=== PATIENT | female | born 1960 | race Caucasian/White ===

== ENCOUNTER → 2019-06-01 10:33 | Outpatient (BNVA) | payer SELFPAY | PROVIDERS: PCP Nurse Practitioner; Visit Provider Nurse Practitioner | DX: M54.30 Sciatica, unspecified side (principal); M54.9 Dorsalgia, unspecified; R05 Cough; I10 Essential (primary) hypertension | CPT/HCPCS: 71046; 72040; 72072; 72100; 80053; 80061; 81000; 85025 ==

== ENCOUNTER → 2019-09-01 14:05 | Outpatient (BNVA) | payer SELFPAY | PROVIDERS: PCP Nurse Practitioner; Visit Provider Nurse Practitioner Family | DX: F41.8 Other specified anxiety disorders (principal); I10 Essential (primary) hypertension; L50.9 Urticaria, unspecified; R79.89 Other specified abnormal findings of blood chemistry | CPT/HCPCS: 80053; 85025; 86705; 86706; 86709; 86803; 87340 ==

== ENCOUNTER → 2019-09-07 09:55 | Outpatient (BNVA) | payer SELFPAY | PROVIDERS: PCP Nurse Practitioner; Visit Provider Nurse Practitioner Family | DX: R76.8 Other specified abnormal immunological findings in serum (principal) | CPT/HCPCS: 87522; 87902 ==

== ENCOUNTER 2019-09-22 06:55 | Outpatient (CLI) | payer SELFPAY ==
--- NOTE | 2019-09-22 07:15 | US_ITS ---
WS: [id number] ULTRASOUND ABDOMEN LIMITED CLINICAL INFORMATION: elevated LFTs, hepatis C positive on panel COMPARISON: None. FINDINGS: Liver Size: Normal. Craniocaudal length: 14.5 cm. Echogenicity: Normal. Surface nodularity: None. Mass (size and location): Several echogenic lesions in the liver likely represent cavernous hemangiom as largest in the right hepatic lobe measuring 1.8 x 2.2 x 1.7 CM. This could be further evaluated wi CT abdomen pelvis with liver protocol. Bile ducts Intrahepatic ducts: Normal. Common bile duct diameter: 0.4 cm. Gallbladder Cholecystectomy Pancreas Normal as visualized. Right kidney: Normal. Hydronephrosis: None. Size: 10.0 cm x 4.1 cm x 4.7 cm. Abdominal aorta and IVC Visualized portions are normal. Ascites: None. US/US liver [id number] IMPRESSION: 1. Several echogenic lesion right hepatic lobe most likely represent benign ca vernous hemangiomas. Largest measures 1.8 x 2.2 x 1.7 CM. Recommend further gonzalez luation with CT abdomen pelvis with triphasic liver protocol for further assess ment. 2. Cholecystectomy. 3. Exam otherwise unremarkable
== END 2019-09-22 06:56 | disposition home or self-care (01) ==
PROVIDERS: PCP Nurse Practitioner; Visit Provider Nurse Practitioner Family
DX: R76.8 Other specified abnormal immunological findings in serum (principal); R94.5 Abnormal results of liver function studies; K76.9 Liver disease, unspecified
CPT/HCPCS: 76705

== ENCOUNTER 2019-09-28 12:53 | Outpatient (CLI) | payer SELFPAY ==
--- NOTE | 2019-09-28 13:00 | CT_ITS ---
WS: [id number] CT ABDOMEN NON-CONTRAST PLUS CONTRAST TECHNIQUE: Noncontrast CT of the abdomen and contrast-enhanced CT of the abdomen with coronal and sag ittal reformatted images. CLINICAL INFORMATION: liver lesion COMPARISON: Ultrasound liver September 22, 2019 DLP: [id number] scans at [facility] use at least one of these dose optimization techniques: automat ed exposure control; mA and/or kV adjustment per patient size (includes targeted exams where dose is matched to clinical indication); or iterative reconstruction. FINDINGS: Mild diffuse fatty infiltration liver. Portal vein and splenic vein are normal. Cholecystectomy clips . Peripheral enhancing lesion right hepatic lobe measuring 2.6 x 1.6 cm with progressive globular enh ancement on the delayed imaging most consistent with cavernous hemangioma. Smaller similar-appearing lesion in the left hepatic lobe measuring 10 mm. Normal GE junction. Normal spleen. Adrenal glands are normal. Normal pancreas. Aortic calcification. Dense aortic calcification distal a bdominal aorta with mild stenosis. Mild/moderate stenosis involving the right common iliac origin. Lung bases are well aerated. CT/CT abdomen wo/w con [id number] IMPRESSION: 1. Right hepatic low-attenuation lesion with peripheral progressive enhancemen t most consistent with cavernous hemangioma measuring 2.6 x 1.6 cm correspondin g to the ultrasound findings. 2. Additional smaller similar appearing lesion left hepatic lobe measuring 10 mm also most consistent with cavernous hemangioma. These lesions to be followed up in 6-12 months with contrast-enhanced CT abdomen pelvis with liver protocol to ensure stability 3. Diffuse fatty infiltration of the liver. 4. No other significant findings. 5. Moderate calcified atheromatous disease abdominal aorta with mild stenosis. Moderate stenosis involving the right common iliac artery origin.
[2019-09-28] MEDS: iohexol 300 mg/mL 100 mL Btl IV (13:28)
== END 2019-09-28 12:54 | disposition home or self-care (01) ==
LOC: RADWPI 12:56
PROVIDERS: Family Provider Nurse Practitioner; PCP Nurse Practitioner; Visit Provider Nurse Practitioner Family
DX: K76.9 Liver disease, unspecified (principal); K76.0 Fatty (change of) liver, not elsewhere classified; I70.0 Atherosclerosis of aorta; I35.0 Nonrheumatic aortic (valve) stenosis; I70.8 Atherosclerosis of other arteries
CPT/HCPCS: 74170; Q9967

== ENCOUNTER 2019-11-04 08:33 | Day surgery (SDC) | payer SELFPAY ==
[2019-11-02 15:22] VITALS: BMI 25.0
[2019-11-04 08:50] VITALS: BP 119/85; PULSE 107; RESP 18; TEMP 36.6; O2SAT 98
[2019-11-04] MEDS: sodium chloride 0.9% 1,000 ML 30 ML IV (09:04)
--- NOTE | 2019-11-04 09:32 | ANES.PREANE2 ---
Pre-Anesthetic Assessment Pre-Anesthetic Assessment: Height/Weight: Height 1.52 m Weight 58.06 kg Temp Pulse Resp BP Pulse Ox 97.9 F 107 H 18 119/85 98 11/04/19 08:50 11/04/19 08:50 11/04/19 08:50 11/04/19 08:50 11/04/19 08:50 Preop Diagnosis: polys Proposed Procedure: Operation Date: 11/04/19 09:45 Proposed Procedures p Colonoscopy 25642 Z86.010(Not Applicable) - Davonte Hernandez MD Was Beta Sergo taken within 24 hours: N/A Last intake: Intake Last Liquid Date 11/03/19 Last Liquid Time 22:00 Last Solid Date 11/02/19 Last Solid Time 20:00 Social: Social History: Alcohol and Tobacco Exam: Pre-Anes Outpt Exam: alert, oriented x 3, clear to auscultation bilaterally and regular rate & rhythm Airway: Submandibular: WNL Cervical ROM: WNL MP: 1 Pulmonary: Pulmonary: COPD and Cough CV/HEM: CV/HEM: HTN : : None reported Hepatic: Hepatic: None reported GI: GI: None reported Metabolic: Metabolic: DM Musc/skel: Musc/skel: None reported Neuropsych: Neuropsych: None reported Anesthetic Plan: ASA status: 2 Anesthesia: MAC Meds/Allergies Current Medications: Current Medications Generic Name Dose Route Start Last Admin Trade Name Freq PRN Reason Stop Dose Admin Sodium Chloride 1,000 mls @ 30 ml s/hr 11/04/19 08:45 11/04/19 09:04 Sodium Chloride 0.9% IV 11/05/19 08:44 30 mls/hr .Q24H VLADISLAV Administration PFSH Anesthesia PFSH: Medical History (Updated 10/19/19 @ 09:51 by Davonte Hernandez MD) Anxiety with depression Environmental and seasonal allergies Essential (primary) hypertension Fibromyalgia GERD (gastroesophageal reflux disease) Hepatitis C Sciatic pain Surgical History H/O: hysterectomy History of appendectomy History of section History of cholecystectomy Family History Mother Cancer Heart disease Other Diabetes Denies family history of Chronic kidney disease (CKD) Bleeding disorder Social History Smoking and tobacco status: current every day smoker Second hand smoke exposure: Yes Smoking risk assessment/counseling performed?: Yes Alcohol intake: unknown Desire information about alcohol rehabilitation?: No Counseling given: No Desire information about substance/drug rehabilitation?: No Counseling given: No Caregiver/support person: No Lives independently: Yes Marital status: Legally Current occupational status: employed History of recent travel: No Current gender identity: Female Data Anesthesia Cardiac Studies: No Data to Display
--- NOTE | 2019-11-04 10:43 | W.PM.OPSUD ---
Surgery/Procedure H&P Update DATE OF PROCEDURE: November 04, 2019 DATE H&P PERFORMED: 10/19/19 PREOP DIAGNOSIS: polys PLANNED PROCEDURE: Operation Date: 11/04/19 09:45 Proposed Procedures p Colonoscopy 96453 Z86.010(Not Applicable) - Davonte Hernandez MD
[2019-11-04 10:56] VITALS: BP 97/67; PULSE 83; RESP 16; TEMP 37.1; O2SAT 99
--- NOTE | 2019-11-04 10:58 | ANE.PACU2 ---
Inpatient post-anesthesia follow up: Airway intact: Yes Vital signs: Temperature 98.7 F Pulse Rate 83 Respiratory Rate 16 Blood Pressure 97/67 Pulse Oximetry 99 Oxygen Delivery Me thod Nasal Cannula Oxygen Flow Rate 5 Fraction of Inspir ed Oxygen Hydration adequate: Yes Nausea and vomiting: No Pain level: 1 Mental status: Baseline
[2019-11-04 11:17] VITALS: BP 127/86; PULSE 87; RESP 18; O2SAT 97
== END 2019-11-04 11:24 | disposition home or self-care (01) ==
PROVIDERS: PCP Nurse Practitioner; Visit Provider Internal Medicine
PROC: 0DJD8ZZ Inspection of Lower Intestinal Tract, Via Natural or Artificial Opening Endoscopic (ICD-10-PCS; CPT 45378; principal; 2019-11-04 09:45)
DX: Z12.11 Encounter for screening for malignant neoplasm of colon (principal); J44.9 Chronic obstructive pulmonary disease, unspecified; I10 Essential (primary) hypertension; E11.9 Type 2 diabetes mellitus without complications; B18.2 Chronic viral hepatitis C; F17.200 Nicotine dependence, unspecified, uncomplicated; Z86.010 Personal history of colon polyps; Z83.71 Family history of colonic polyps
CPT/HCPCS: 12345; 45378; J2704; J7030

== ENCOUNTER → 2020-01-09 16:02 | Outpatient (BNVA) | payer SELFPAY | PROVIDERS: PCP Nurse Practitioner; Visit Provider Internal Medicine | DX: B18.2 Chronic viral hepatitis C (principal) | CPT/HCPCS: 87522 ==

== ENCOUNTER 2020-03-15 10:59 | Outpatient (CLI) | payer SELFPAY ==
--- NOTE | 2020-03-15 11:30 | MM_ITS ---
WS: [id number] Bilateral screening digital mammogram, 03/15/2020 Clinical Data: Z12.31 - Encounter for screening mammogram for malignant neoplasm of breast Comparison: 08/12/2010, 07/13/2001. Findings: The breast parenchymal pattern shows fibroglandular tissue. No spiculated masses or clustered calcifi cations are seen. There are no secondary signs of carcinoma. MM/[place] [id number] Impression: 1. Negative bilateral mammogram unchanged. 2. Recommend annual screening mammograms. BIRADS: 1-Negative FOLLOW UP: 1 Year Follow-up The CAD production checker was used.
== END 2020-03-15 11:00 | disposition home or self-care (01) ==
LOC: RADSHAW 11:02
PROVIDERS: PCP Nurse Practitioner; Visit Provider Nurse Practitioner Family
DX: Z12.31 Encounter for screening mammogram for malignant neoplasm of breast (principal)
CPT/HCPCS: 77067

== ENCOUNTER → 2020-05-28 10:15 | Outpatient (BNVA) | payer SELFPAY | PROVIDERS: PCP Nurse Practitioner; Visit Provider Nurse Practitioner | DX: I10 Essential (primary) hypertension (principal); E55.9 Vitamin D deficiency, unspecified; B18.2 Chronic viral hepatitis C; M79.7 Fibromyalgia; J30.89 Other allergic rhinitis | CPT/HCPCS: 80053; 80061; 82306; 82607; 84443; 87522; 87635 ==

== ENCOUNTER 2020-06-01 08:17 | Day surgery (SDC) | payer SELFPAY ==
[2020-05-30 11:27] VITALS: BMI 25.0
[2020-06-01 08:36] VITALS: BP 140/98; PULSE 94; RESP 16; TEMP 37.1; O2SAT 97
[2020-06-01 08:51] VITALS: BP 140/98; PULSE 94; RESP 16; TEMP 37.1; O2SAT 97
[2020-06-01] MEDS: sodium chloride 0.9% 1,000 ML 30 ML IV (08:56)
--- NOTE | 2020-06-01 09:12 | W.PM.OPSUD ---
Surgery/Procedure H&P Update DATE OF PROCEDURE: June 01, 2020 DATE H&P PERFORMED: 05/28/20 PREOP DIAGNOSIS: egd PLANNED PROCEDURE: Operation Date: 06/01/20 09:50 Proposed Procedures p EGD Dilation Mini/ Gilles 99654 r13.10(Not Applicable) - Davonte Hernandez MD
--- NOTE | 2020-06-01 10:15 | ANES.PREANE2 ---
Pre-Anesthetic Assessment Pre-Anesthetic Assessment: Height/Weight: Height 1.52 m Weight 58.06 kg Temp Pulse Resp BP Pulse Ox 97.7 F 76 16 95/66 94 06/01/20 10:29 06/01/20 10:29 06/01/20 10:29 06/01/20 10:29 06/01/20 10:29 Preop Diagnosis: egd Proposed Procedure: Operation Date: 06/01/20 09:50 Proposed Procedures p EGD Dilation W/ Bougie 15777 r13.10(Not Applicable) - Davonte Hernandez MD Was Beta Sergo taken within 24 hours: N/A Was Clonidine taken within 24 hours: N/A Last intake: Intake Last Liquid Date 05/31/20 Last Solid Date 05/31/20 Social: Social History: Tobacco Exam: Pre-Anes Outpt Exam: alert, oriented x 3, clear to auscultation bilaterally and regular rate & rhythm Airway: Submandibular: WNL Cervical ROM: WNL MP: 2 Dentition: False History/ROS: No significant history except as noted Pulmonary: Pulmonary: COPD CV/HEM: CV/HEM: HTN : : None reported Hepatic: Hepatic: Hepatitis (treated) GI: GI: GERD Comments: dysphagia Metabolic: Metabolic: None reported Musc/skel: Musc/skel: Fibromyalgia Neuropsych: Neuropsych: Anxiety Anesthetic Plan: ASA status: 2 Meds/Allergies Current Medications: Current Medications Generic Name Dose Route Start Last Admin Trade Name Freq PRN Reason Stop Dose Admin Sodium Chloride 1,000 mls @ 30 ml s/hr 06/01/20 08:30 06/01/20 08:56 Sodium Chloride 0.9% IV 30 mls/hr .Q24H VLADISLAV Administration PFSH Anesthesia PFSH: Medical History Anxiety with depression Environmental and seasonal allergies Essential (primary) hypertension Fibromyalgia GERD (gastroesophageal reflux disease) Hepatitis C Sciatic pain Surgical History H/O: hysterectomy History of appendectomy History of section History of cholecystectomy Family History Mother Cancer Heart disease Other Diabetes Denies family history of Chronic kidney disease (CKD) Bleeding disorder Social History Smoking and tobacco status: current every day smoker Second hand smoke exposure: Yes Smoking risk assessment/counseling performed?: Yes Alcohol intake: unknown Desire information about alcohol rehabilitation?: No Counseling given: No Desire information about substance/drug rehabilitation?: No Counseling given: No Caregiver/support person: No Lives independently: Yes Marital status: Legally Current occupational status: employed History of recent travel: No Current gender identity: Female Data Anesthesia Cardiac Studies: No Data to Display
[2020-06-01 10:29] VITALS: BP 95/66; PULSE 76; RESP 16; TEMP 36.5; O2SAT 94
[2020-06-01 10:48] VITALS: BP 101/73; PULSE 76; RESP 16; O2SAT 100
--- NOTE | 2020-06-01 13:37 | ANE.PACU2 ---
Inpatient post-anesthesia follow up: Airway intact: Yes Vital signs: Temperature 97.7 F Pulse Rate 76 Respiratory Rate 16 Blood Pressure 101/73 Pulse Oximetry 100 Oxygen Delivery Me thod Room Air Oxygen Flow Rate Fraction of Inspir ed Oxygen Hydration adequate: Yes Nausea and vomiting: No Pain level: 1 Mental status: Baseline
[2020-06-02 12:02] LABS: H. Pylori / CLO Test Positive
== END 2020-06-01 11:01 | disposition home or self-care (01) ==
PROVIDERS: PCP Nurse Practitioner; Visit Provider Internal Medicine
DX: K29.71 Gastritis, unspecified, with bleeding (principal); R13.10 Dysphagia, unspecified; K21.9 Gastro-esophageal reflux disease without esophagitis; F17.210 Nicotine dependence, cigarettes, uncomplicated; I10 Essential (primary) hypertension; B19.20 Unspecified viral hepatitis C without hepatic coma; J44.9 Chronic obstructive pulmonary disease, unspecified; M79.7 Fibromyalgia
CPT/HCPCS: 43239; 87077; 96360; 96361; J2704; J7030

== ENCOUNTER → 2021-01-21 16:16 | Outpatient (BNVA) | payer SELFPAY | PROVIDERS: PCP Nurse Practitioner; Visit Provider Nurse Practitioner Family | DX: I10 Essential (primary) hypertension (principal); J98.01 Acute bronchospasm; K21.9 Gastro-esophageal reflux disease without esophagitis | CPT/HCPCS: 80053; 80061; 84443; 85025 ==

== ENCOUNTER → 2021-11-12 09:16 | Outpatient (BNVA) | payer SELFPAY | PROVIDERS: PCP Nurse Practitioner; Visit Provider Nurse Practitioner Family | DX: I10 Essential (primary) hypertension (principal); J30.89 Other allergic rhinitis; K21.9 Gastro-esophageal reflux disease without esophagitis; J98.01 Acute bronchospasm; E78.5 Hyperlipidemia, unspecified; R22.1 Localized swelling, mass and lump, neck; R13.10 Dysphagia, unspecified | CPT/HCPCS: 80053; 80061; 84443; 85025 ==

== ENCOUNTER 2021-11-29 06:07 | Outpatient (CLI) | payer SELFPAY ==
--- NOTE | 2021-11-29 06:30 | US_ITS ---
WS: [id number] THYROID ULTRASOUND HISTORY: R22.1 - Localized swelling, mass and lump, neck COMPARISON: None available. Right lobe: 1.4 cm x 1.3 cm x 3.7 cm (w x ap x l). Volume: 3.5 cm3. Normal size thyroid. Very slight hypoechoic nodule measures 0.8 x 0.5 x 1.0 cm in the inferior pole. No echogenic foci. Ovoid nodule with no increased vascularity. Left lobe: 1.6 cm x 1.3 cm x 3.8 cm (w x ap x l). Volume: 4.1 cm3. Complex cystic nodule in the mid LEFT thyroid measures 1.4 x 1.5 x 2.0 cm. There is mild increased va scularity in the soft tissue component. Due to the vascularity in the solid component fine-needle asp iration should be attempted. No echogenic foci. Isthmus: 0.2 cm. US/US thyroid [id number] IMPRESSION: 1. Cystic nodule in the mid LEFT thyroid contains a mural nodule. This mural n odule should be targeted for FNA to exclude malignancy. 2. No adenopathy.
== END 2021-11-29 06:08 | disposition home or self-care (01) ==
PROVIDERS: PCP Nurse Practitioner; Visit Provider Nurse Practitioner Family
DX: R22.1 Localized swelling, mass and lump, neck (principal); E04.1 Nontoxic single thyroid nodule
CPT/HCPCS: 76536

== ENCOUNTER → 2021-12-12 09:14 | Outpatient (BNVA) | payer MEDICAID, SELFPAY | PROVIDERS: PCP Nurse Practitioner; Visit Provider Nurse Practitioner | DX: M17.11 Unilateral primary osteoarthritis, right knee (principal); M25.561 Pain in right knee | CPT/HCPCS: 73562 ==

== ENCOUNTER 2022-02-21 11:54 | Outpatient (CLI) | payer MEDICAID, SELFPAY ==
--- NOTE | 2022-02-21 13:00 | US_ITS ---
WS: [id number] ULTRASOUND THYROID FNA CLINICAL INFORMATION: thyroid nodule TECHNIQUE: Ultrasound-guided FNA FINDINGS: Prior ultrasound was reviewed November 29, 2021. The procedure including risks, benefits, and complications were discussed with the patient who agreed to proceed. Timeout was performed. Using sterile technique patient was prepped and draped in usual sterile fashion. After 1% lidocaine, using ultrasound guidance, a 25-gauge needle was advanced into the LEFT thyroid nodule. 5 passes were made with active aspiration. Pathology was present for slide preparation. No immediate complications. Patient remained in the ultrasound suite 10 minutes postprocedure with intermittent ultrasound to ens ure no hematoma. No hematoma 10 minutes postprocedure. US/US biopsy/FNA thyroid [id number] IMPRESSION: Uncomplicated ultrasound-guided thyroid FNA complex LEFT thyroid nodule
== END 2022-02-21 11:55 | disposition home or self-care (01) ==
LOC: RAD 11:54
PROVIDERS: PCP Nurse Practitioner; Visit Provider Otolaryngology
DX: E04.1 Nontoxic single thyroid nodule (principal)
CPT/HCPCS: 10005; 88108

== ENCOUNTER → 2022-03-27 08:58 | Outpatient (BNVA) | payer MEDICAID, SELFPAY | PROVIDERS: PCP Nurse Practitioner; Visit Provider Nurse Practitioner Family | DX: I10 Essential (primary) hypertension (principal); E04.1 Nontoxic single thyroid nodule | CPT/HCPCS: 80053; 80061; 84439; 84443; 84481; 85025; 86376 ==

== ENCOUNTER 2022-05-22 10:40 | Outpatient (CLI) | payer MEDICAID, SELFPAY ==
--- NOTE | 2022-05-22 11:23 | MM_ITS ---
WS: [id number] BILATERAL SCREENING DIGITAL TOMOSYNTHESIS MAMMOGRAM WITH CAD HISTORY: Screening exam. COMPARISON: 03/15/2020, 08/12/2010 Bilateral CC and MLO views with tomosynthesis and synthetic mammography submitted. Computer aided det ection analyzed. Breast composition: There are scattered areas of fibroglandular density. No suspicious masses, microc alcifications or architectural distortion. Similar appearance as compared to 2020 mammogram and also 2010. Benign calcifications in each breast. MM/[place] [id number] IMPRESSION: BI-RADS: 2-Benign FOLLOW UP: 1 Year Follow-up
== END 2022-05-22 10:41 | disposition home or self-care (01) ==
LOC: RAD 10:44
PROVIDERS: PCP Nurse Practitioner; Visit Provider Nurse Practitioner
DX: Z12.31 Encounter for screening mammogram for malignant neoplasm of breast (principal)
CPT/HCPCS: 77063; 77067

== ENCOUNTER → 2022-07-14 14:18 | Outpatient (BNVA) | payer MEDICAID, SELFPAY | PROVIDERS: PCP Nurse Practitioner; Visit Provider Nurse Practitioner Family | DX: L98.9 Disorder of the skin and subcutaneous tissue, unspecified (principal); M25.50 Pain in unspecified joint; I10 Essential (primary) hypertension; M54.50 Low back pain, unspecified; G89.29 Other chronic pain; M25.551 Pain in right hip; M25.552 Pain in left hip; M81.0 Age-related osteoporosis without current pathological fracture; K21.9 Gastro-esophageal reflux disease without esophagitis; J30.89 Other allergic rhinitis; T63.461A Toxic effect of venom of wasps, accidental (unintentional), initial encounter; E78.5 Hyperlipidemia, unspecified; M19.90 Unspecified osteoarthritis, unspecified site; X58.XXXA Exposure to other specified factors, initial encounter | CPT/HCPCS: 80053; 80061; 84443; 85025; 85651; 86140; 86160; 86162; 86235; 86255; 86376; 86431 ==

== ENCOUNTER → 2022-07-23 13:17 | Outpatient (BNVA) | payer MEDICAID, SELFPAY | PROVIDERS: PCP Nurse Practitioner; Visit Provider Nurse Practitioner Family | DX: M25.551 Pain in right hip (principal); M25.552 Pain in left hip; G89.29 Other chronic pain; M54.50 Low back pain, unspecified | CPT/HCPCS: 72100; 73522 ==

== ENCOUNTER 2022-08-14 14:39 | Outpatient (CLI) | payer MEDICAID, SELFPAY ==
--- NOTE | 2022-08-14 15:00 | XR_ITS ---
WS: [id number] SCREENING DEXA SCAN [facility] CLINICAL INFORMATION: M81.0 - Age-related osteoporosis without current patholog... COMPARISON: None. FINDINGS: The L1-L4 bone mineral density measures 0.900 g/cm2. This corresponds to a T score score of -2.3 and Z score of -0.9. Left femoral neck bone mineral density measures 0.762 g/cm2. This corresponds to a T score of -2.0 an d Z score of -0.9. Right femoral neck bone mineral density measures 0.715 g/cm2. This corresponds to a T score -2.3of an d Z score of -1.3. Mean femoral neck bone mineral density measures 0.738 g/cm2. This corresponds to a T score of -2.1 an d Z score of -1.1. XR/XR DEXA axial skeleton* [id number] IMPRESSION: Osteopenia lumbar spine and femoral necks at the upper end of the range. Patient's FRAX calculated 10 year probability for major osteoporotic fracture i s 49.1 % and osteoporotic hip fracture is 14.7%.
== END 2022-08-14 14:40 | disposition home or self-care (01) ==
LOC: RAD 14:42
PROVIDERS: PCP Nurse Practitioner; Visit Provider Nurse Practitioner Family
DX: Z13.820 Encounter for screening for osteoporosis (principal); M81.0 Age-related osteoporosis without current pathological fracture; M85.89 Other specified disorders of bone density and structure, multiple sites
CPT/HCPCS: 77080; 80053; 80061; 84443; 85025; 85651; 86140; 86160; 86162; 86235; 86255; 86376; 86431

== ENCOUNTER → 2022-12-29 14:51 | Outpatient (BNVA) | payer MEDICAID, SELFPAY | PROVIDERS: PCP Nurse Practitioner Family; Visit Provider Nurse Practitioner Family | DX: I10 Essential (primary) hypertension (principal); J30.89 Other allergic rhinitis; K21.9 Gastro-esophageal reflux disease without esophagitis; M05.79 Rheumatoid arthritis with rheumatoid factor of multiple sites without organ or systems involvement; E78.5 Hyperlipidemia, unspecified; M81.0 Age-related osteoporosis without current pathological fracture; M19.90 Unspecified osteoarthritis, unspecified site; J06.9 Acute upper respiratory infection, unspecified | CPT/HCPCS: 80053; 80061; 84443; 85025 ==

== ENCOUNTER → 2023-03-04 13:11 | Outpatient (BNVA) | payer MEDICAID, SELFPAY | PROVIDERS: PCP Nurse Practitioner Family; Visit Provider Nurse Practitioner Family | DX: R05.9 Cough, unspecified (principal); U07.1 COVID-19 | CPT/HCPCS: 87426 ==

== ENCOUNTER → 2023-06-24 14:02 | Outpatient (BNVA) | payer MEDICAID, SELFPAY | PROVIDERS: PCP Nurse Practitioner Family; Visit Provider Nurse Practitioner Family | DX: S29.9XXA Unspecified injury of thorax, initial encounter (principal); R07.81 Pleurodynia; X58.XXXA Exposure to other specified factors, initial encounter | CPT/HCPCS: 71046; 71100 ==

== ENCOUNTER 2023-08-25 14:16 | Outpatient (CLI) | payer MEDICAID, SELFPAY ==
--- NOTE | 2023-08-25 14:20 | MM_ITS ---
WS: [id number] BILATERAL 3D TOMOSYNTHESIS DIGITAL SCREENING MAMMOGRAPHY WITH CAD CLINICAL INFORMATION: SCREENING HISTORY: Screening mammogram. No current complaints. COMPARISON: 05/22/2022 TECHNIQUE: Bilateral CC and MLO views. FINDINGS: Scattered fibroglandular densities bilaterally. Small ovoid asymmetric density anterior RIGHT breast measuring 6 mm best seen on the MLO view upper quadrant near the 12 o'clock position. Recommend RIGHT breast diagnostic mammography and ultrasound. LEFT breast is unchanged and unremarkable. MM/[place] [id number] IMPRESSION: BI-RADS: 0-Incomplete: Need additional imaging evaluation FOLLOW UP: Need Additional Imaging Recommend RIGHT breast diagnostic mammography and ultrasound.
== END 2023-08-25 14:17 | disposition home or self-care (01) ==
LOC: MOBLMAM 14:22
PROVIDERS: PCP Family Medicine; Visit Provider Family Medicine
DX: Z12.31 Encounter for screening mammogram for malignant neoplasm of breast (principal); R92.323 Mammographic fibroglandular density, bilateral breasts; N64.89 Other specified disorders of breast
CPT/HCPCS: 77063; 77067

== ENCOUNTER 2023-09-24 14:05 | Outpatient (CLI) | payer MEDICAID, SELFPAY ==
--- NOTE | 2023-09-24 14:30 | MM_ITS ---
WS: [id number] RIGHT 3D TOMOSYNTHESIS DIGITAL MAMMOGRAPHY WITH CAD CLINICAL INFORMATION: abnormal screening mammogram HISTORY: Additional views COMPARISON: 2022 TECHNIQUE: 3 views of the right breast were obtained. FINDINGS: Scattered fibroglandular densities of the right breast. Again seen is the small ovoid asymmetric dens ity anterior RIGHT breast measuring 6 mm best seen on the MLO view today near the 12 o'clock position . Ultrasound is pending. ULTRASOUND BREAST RIGHT TECHNIQUE: Ultrasound right breast focused area of concern. CLINICAL INFORMATION: abnormal screening mammogram FINDINGS: Ultrasound RIGHT breast 11 to 1 o'clock position anteriorly. Incidental ductal ectasia visualized at the 12 o'clock position. No visualized intraductal debris or lesions. No suspicious lesions to target for biopsy. Findings are benign. Recommend return to annual screening mammography. MM/[place] [id number] IMPRESSION: BI-RADS: 2-Benign FOLLOW UP: 1 Year Follow-up Recommend return to annual screening mammography.
--- NOTE | 2023-09-24 15:00 | US_ITS ---
WS: [id number] RIGHT 3D TOMOSYNTHESIS DIGITAL MAMMOGRAPHY WITH CAD CLINICAL INFORMATION: abnormal screening mammogram HISTORY: Additional views COMPARISON: 2022 TECHNIQUE: 3 views of the right breast were obtained. FINDINGS: Scattered fibroglandular densities of the right breast. Again seen is the small ovoid asymmetric dens ity anterior RIGHT breast measuring 6 mm best seen on the MLO view today near the 12 o'clock position . Ultrasound is pending. ULTRASOUND BREAST RIGHT TECHNIQUE: Ultrasound right breast focused area of concern. CLINICAL INFORMATION: abnormal screening mammogram FINDINGS: Ultrasound RIGHT breast 11 to 1 o'clock position anteriorly. Incidental ductal ectasia visualized at the 12 o'clock position. No visualized intraductal debris or lesions. No suspicious lesions to target for biopsy. Findings are benign. Recommend return to annual screening mammography. US/US breast RT limited* [id number] IMPRESSION: BI-RADS: 2-Benign FOLLOW UP: 1 Year Follow-up Recommend return to annual screening mammography.
== END 2023-09-24 14:06 | disposition home or self-care (01) ==
LOC: RAD 14:06
PROVIDERS: PCP Family Medicine; Visit Provider Family Medicine
DX: R92.8 Other abnormal and inconclusive findings on diagnostic imaging of breast (principal); R92.321 Mammographic fibroglandular density, right breast; N60.41 Mammary duct ectasia of right breast
CPT/HCPCS: 76642; 77061; G0279

== ENCOUNTER → 2023-09-28 08:08 | Outpatient (BNVA) | payer MEDICAID, SELFPAY | PROVIDERS: PCP Family Medicine; Visit Provider Family Medicine | DX: I10 Essential (primary) hypertension (principal); E78.5 Hyperlipidemia, unspecified | CPT/HCPCS: 80053; 80061; 84443; 85025 ==

== ENCOUNTER → 2023-12-14 13:52 | Outpatient (BNVA) | payer MEDICAID, SELFPAY | PROVIDERS: PCP Nurse Practitioner Family; Visit Provider Nurse Practitioner Family | DX: M47.816 Spondylosis without myelopathy or radiculopathy, lumbar region (principal); M54.50 Low back pain, unspecified | CPT/HCPCS: 72100 ==

== ENCOUNTER → 2023-12-24 13:12 | Outpatient (BNVA) | payer MEDICAID, SELFPAY | PROVIDERS: PCP Nurse Practitioner Family; Visit Provider Orthopaedic Surgery | DX: M54.9 Dorsalgia, unspecified (principal) | CPT/HCPCS: 72110 ==

== ENCOUNTER 2024-01-13 06:00 | Outpatient (RCR) | payer MEDICAID, SELFPAY | END 2024-02-06 23:59 | disposition home or self-care (01) | LOC: TPT 06:00 | PROVIDERS: Visit Provider Orthopaedic Surgery | DX: M54.9 Dorsalgia, unspecified (principal); G89.29 Other chronic pain | CPT/HCPCS: 97110; 97163 ==

== ENCOUNTER 2024-02-07 06:00 | Outpatient (RCR) | payer MEDICAID, SELFPAY | END 2024-03-08 23:59 | disposition home or self-care (01) | LOC: TPT 06:00 | PROVIDERS: Visit Provider Orthopaedic Surgery | DX: M54.9 Dorsalgia, unspecified (principal); G89.29 Other chronic pain | CPT/HCPCS: 97110; 97140 ==

== ENCOUNTER 2024-06-07 05:00 | Outpatient (RCR) | payer MEDICAID, SELFPAY | END 2024-07-06 23:59 | disposition home or self-care (01) | LOC: TPT 05:00 | PROVIDERS: PCP Nurse Practitioner Family; Visit Provider Nurse Practitioner Family | DX: M54.9 Dorsalgia, unspecified (principal); G89.29 Other chronic pain | CPT/HCPCS: 97110; 97140; 97161 ==

== ENCOUNTER → 2024-06-15 14:57 | Outpatient (BNVA) | payer MEDICAID, SELFPAY | PROVIDERS: PCP Nurse Practitioner Family; Visit Provider Nurse Practitioner Family | DX: E04.1 Nontoxic single thyroid nodule (principal); J44.9 Chronic obstructive pulmonary disease, unspecified; M05.79 Rheumatoid arthritis with rheumatoid factor of multiple sites without organ or systems involvement; K21.9 Gastro-esophageal reflux disease without esophagitis; I10 Essential (primary) hypertension; E78.5 Hyperlipidemia, unspecified | CPT/HCPCS: 80053; 80061; 84443; 85025 ==

== ENCOUNTER 2024-07-07 05:00 | Outpatient (RCR) | payer MEDICAID, SELFPAY | END 2024-08-06 23:59 | disposition home or self-care (01) | LOC: TPT 05:00 | PROVIDERS: PCP Nurse Practitioner Family; Visit Provider Nurse Practitioner Family | DX: M54.9 Dorsalgia, unspecified (principal); G89.29 Other chronic pain | CPT/HCPCS: 97110 ==

== ENCOUNTER → 2024-07-19 12:12 | Outpatient (BNVA) | payer MEDICAID, SELFPAY | PROVIDERS: PCP Nurse Practitioner Family; Visit Provider Nurse Practitioner Family | DX: Z12.39 Encounter for other screening for malignant neoplasm of breast (principal) | CPT/HCPCS: 80053; 85025; 85651; 86140; 86431 ==

== ENCOUNTER → 2024-07-28 10:07 | Outpatient (BNVA) | payer MEDICAID, SELFPAY | PROVIDERS: PCP Nurse Practitioner Family; Visit Provider Nurse Practitioner Family | DX: Z12.39 Encounter for other screening for malignant neoplasm of breast (principal) | CPT/HCPCS: 86160; 86162; 86235; 86255; 86376 ==

== ENCOUNTER 2024-09-21 11:54 | Outpatient (CLI) | payer MEDICAID, SELFPAY ==
--- NOTE | 2024-09-21 12:00 | MM_ITS ---
WS: [id number] BILATERAL SCREENING DIGITAL TOMOSYNTHESIS MAMMOGRAM WITH CAD HISTORY: Z12.39 - Encounter for other screening for malignant neop... COMPARISON: 09/24/2023, 08/25/2023, 05/22/2022 Bilateral CC and MLO views with tomosynthesis and synthetic mammography submitted. Computer aided detection analyzed. Breast composition: There are scattered areas of fibroglandular density. No suspicious masses, microcalcifications or architectural distortion. Scattered asymmetries and calcifications are stable. MM/MM scr BI tomosynthesis [id number] IMPRESSION: BI-RADS: 2 - Benign. FOLLOW UP: 1 Year Follow-up
== END 2024-09-21 11:55 | disposition home or self-care (01) ==
LOC: MOBLMAM 11:56
PROVIDERS: PCP Nurse Practitioner Family; Visit Provider Nurse Practitioner Family
DX: Z12.31 Encounter for screening mammogram for malignant neoplasm of breast (principal); R92.323 Mammographic fibroglandular density, bilateral breasts; R92.1 Mammographic calcification found on diagnostic imaging of breast
CPT/HCPCS: 77063; 77067

== ENCOUNTER → 2024-10-03 14:39 | Outpatient (BNVA) | payer MEDICAID, SELFPAY | PROVIDERS: PCP Nurse Practitioner Family; Visit Provider Nurse Practitioner Family | DX: M79.671 Pain in right foot (principal) | CPT/HCPCS: 73630 ==

== ENCOUNTER → 2024-10-25 09:38 | Outpatient (BNVA) | payer MEDICAID, SELFPAY | PROVIDERS: PCP Nurse Practitioner Family; Visit Provider Podiatrist Foot & Ankle Surgery | DX: M79.672 Pain in left foot (principal); M19.071 Primary osteoarthritis, right ankle and foot | CPT/HCPCS: 73630 ==

== ENCOUNTER → 2025-01-17 15:00 | Outpatient (BNVA) | payer MEDICAID, SELFPAY | PROVIDERS: PCP Nurse Practitioner Family; Visit Provider Nurse Practitioner Family | DX: I10 Essential (primary) hypertension (principal); E78.5 Hyperlipidemia, unspecified | CPT/HCPCS: 80053; 80061; 84443; 85025 ==

== ENCOUNTER 2025-01-31 11:00 | Outpatient (CLI) | payer MEDICAID, SELFPAY ==
--- NOTE | 2025-01-31 11:00 | USR_ITS ---
PROCEDURE INFORMATION: Exam: US Soft Tissue Head and Neck, Thyroid Exam date and time: 01/31/2025 11:18 AM Age: 64 years old Clinical indication: Condition or disease; Thyroid disorder; Other: Nontoxic single thyroid nodule; Additional info: E04.1 - nontoxic single thyroid nodule TECHNIQUE: Imaging protocol: Real-time ultrasound scan of the neck with image documentation. Exam focused on the thyroid. COMPARISON: 1. US biopsy/FNA thyroid 02/21/2022 1:04 PM 2. Thyroid ultrasound dated 11/29/2021 FINDINGS: Right thyroid lobe: The right thyroid measures 1.6 x 1.4 x 5.1 cm. Nodule 1: Stable right superior thyroid measuring 1.0 x 0.5 x 0.8 cm, mixed cystic/solid (1 point), hypoechoic (2 points), ill-defined margins (0 points), wider than tall (0 points), no echogenic foci or large comet tail artifact (0 points). Total points: Three points (TR 3). Left thyroid lobe: Nodule 2: Left inferior thyroid measuring 1.8 x 0.8 x 4.3 cm (transverse dimensions remeasured given margin of error on the nodule capsule), previously 1.5 x 1.6 x 2.0 cm, mixed cystic/solid (1 point), hypoechoic (2 points), wider than tall (0 points), smooth margins (0 points), no echogenic foci or large comet tail artifact (0 points). Total points: Three points (TR 3). Isthmus: The thyroid isthmus measures 0.2 cm, within normal limits. Lymph nodes: Normal thyroid echogenicity and echotexture. No parenchymal hyperemia is noted. US/US thyroid [id number] IMPRESSION: 1. Stable right thyroid nodule measuring less than 1.5 cm. TI-RADS category TR3, Mildly Suspicious. No fine needle aspiration or follow-up ultrasound is recommended. (Reference: Evert) 2. Interval increase in size of known left thyroid nodule measuring up to 4.3 cm as above. TI-RADS category TR3, Mildly Suspicious. Correlate with prior biopsy results. Given interval increase in size, repeat FNA can be considered. REFERENCES: 1. Evert FN, Holly WD, Jeronimo EG et al. ACR Thyroid Imaging, Reporting and Data System (TI-RADS): White Paper of the ACR TI-RADS Committee. J Am Stephon Radiol. 2017; 14: 587-595. 2. Evert FN, Holly DUMONT, Jeronimo ANDUJAR et al. ACR Thyroid Imaging, Reporting and Data System (TI-RADS): White Paper of the ACR TI-RADS Committee. J Am Stephon Radiol. 2017; 14: 587-595.
== END 2025-01-31 11:01 | disposition home or self-care (01) ==
LOC: RAD 11:01
PROVIDERS: PCP Nurse Practitioner Family; Visit Provider Nurse Practitioner Family
DX: E04.2 Nontoxic multinodular goiter (principal)
CPT/HCPCS: 76536